=== PATIENT | female | born 1980 | race Two or more races ===

== ENCOUNTER 2024-08-25 13:58 | Emergency (ER) | payer OTHER ==
[~2024-08-25] VITALS: Ht 154.9 cm; Wt 61.4 kg
[2024-08-25 14:02] VITALS: BP 142/91; PULSE 88; RESP 18; TEMP 98.3; O2SAT 99
[2024-08-25 14:21] LABS: COVID AG,FIA SOURCE NASAL SWAB
[2024-08-25 14:50] LABS: SARS-COV2 (COVID) ANTIGEN,FIA Negative (Negative)
[2024-08-25 14:51] LABS: INFLUENZA TYPE A NEGATIVE FOR TYPE A (NEGATIVE); INFLUENZA TYPE B NEGATIVE FOR TYPE B (NEGATIVE)
== END 2024-08-25 19:08 | disposition home or self-care (01) ==
LOC: EMS 13:58
DX: J06.9 Acute upper respiratory infection, unspecified (principal); Z20.822 Contact with and (suspected) exposure to COVID-19
CPT/HCPCS: 71045; 87804; 99284